=== PATIENT | male | born 1995 | race Two or more races ===

== ENCOUNTER 2017-07-09 18:51 | Emergency (ER) | payer BC ==
[2017-07-09 18:57] VITALS: BP 118/70; BMI 24.8
--- NOTE | 2017-07-09 20:52 | RAD ---
Left knee series, two views Indication: Fall. Comparison: None available. Impression: No acute fracture or malalignment is identified within the left knee. Joint spaces are preserved. The surrounding soft tissues appear normal without appreciable joint effusion. Reported By:
[2017-07-09] MEDS ORDERED: NAPROSYN PO ONE ×2 (21:30→21:43)
--- NOTE | 2017-07-09 21:34 | DR.GENAD ---
HPI - PCP Primary Care Physician: jhoana - HPI Comment HPI Comment: Knee pain - Complaint/Symptoms Chief Complaint Doctors Comments: He was playing and got tackled during a move. He felt his left knee pop one way and it popped back the other way when he got up. he noted associated pain with the injury. The joint swelled shortly thereafter. Chief Complaint:: pt states" i was playing soccer and i fell on my left knee and it popped out and i got back up and it popped back in, it hurts real bad" - Nurses notes reviewed Nurses Notes Review: Yes - Source History Provided: Patient - Mode of Arrival Mode of Arrival: Ambulatory - Timing Onset of Chief Complaint: 07/09/17 Came on: Suddenly - Duration Duration: Since Onset How lon Duration: Hours - Location Location: lt. knee - Severity Severity: Moderate - Modifying Factors Worsens:: walking/weight bearing Improves:: nothing - Associated Signs and Symptoms Associated Signs and Symptoms: weight bearing PMH - PMH Past Medical History: No Past Surgical History: No - Family History History of Family Medical Conditions: Yes Family Medical History: Diabetes Mellitus - Social History Alcohol Use: None Do you use any recreational Drugs:: No Lives With: Family Lives Where: Home - infectious screening In the last 2 months have you had wt loss of >10#?: NO Have you had fever, night sweats or hemotysis?: No Have you traveled outside the country in the last 6 months?: No Isolation: Standard ROS - Review of Systems Constitutional: No Symptoms Reported Eyes: No Symptoms Reported ENTM: No Symptoms Reported Respiratoy: No Symptoms Reported Cardiovascular: No Symptoms Reported Gastrointestinal/Abdominal: No Symptoms Reported Genitourinary: No Symptoms Reported Neurological: No Symptoms Reported Musculoskeletal: No Symptoms Reported, Joint Pain (lt. knee), Joint Swelling ( lt. knee) Integumentary: No Symptoms Reported Hematologic/Lymphatic: No Symptoms Reported Endocrine: No Symptoms Reported Psychiatric: No Symptoms Reported All Other Systems: Reviewed and Negative PE - Vital Signs Vitals: Temperature 98.6 F Pulse Rate 86 Respiratory Rate 18 Blood Pressure 118/70 O2 Sat by Pulse Oximetry 100 - General Limitations: No Limitations General Appearance: Alert, In No Apparent Distress - Head Head Exam: Normal Inspection - Eyes Eye exam: Normal Appearance - ENT ENT Exam: Normal Exam External Ear Exam: Normal External Inspection TM/Canal Exam: Bilateral Normal Nose Exam: Normal Nose Exam Mouth Exam: Normal Inspection Throat Exam: Normal Inspection - Neck Neck Exam: Normal Inspection - Chest Chest Inspection: Normal Inspection - Respiratory Respiratory Exam: Normal Lung Sounds Bilat Respiratory Exam: Bilateral Clear to Auscultation - Cardiovascular Cardiovascular Exam: Regular Rate, Normal Rhythm - Abdominal Exam Abdominal Exam: Normal Inspection, Normal Bowel Sounds, Soft - Extremities Extremities Exam: Normal Inspection, Tenderness (medial and lateral aspects of the left knee), Joint Swelling (mild to left knee) - Back Back Exam: Normal Inspection - Neurologic Neurological Exam: Alert, Oriented X3 - Psychiatric Psychiatric Exam: Normal Affect, Normal Mood - Skin Skin Exam: Warm, Dry, Intact, Normal Color Course - Reevaluation 1st: Improved - Education/Counseling Education/Counseling: Patient, Education, Counseling Educated On: Treatment, Diagnosis, Needs for Follow Up ROR - XRAY XRAY Interpreted by: Radiologist (There is no fracture or malalignment of the Leftknee. Joint spaces are preserved. soft tissues appear normal) - Diagnosis Discharge Problem: Strain of left knee - Discharge Plan Disposition: 01 HOME, SELF-CARE Condition: Stable - Follow ups/Referrals Follow ups/Referrals: NFD,None [Primary Care Provider] - 3 days - Instructions Additional Instructions: Avoid sporting acting until cleared at follow-up your clinician
== END 2017-07-09 22:29 | disposition home or self-care (01) ==
LOC: ER 19:03
DX: S83.92XA Sprain of unspecified site of left knee, initial encounter (principal); Y93.66 Activity, soccer; W19.XXXA Unspecified fall, initial encounter; Y92.322 Soccer field as the place of occurrence of the external cause
CPT/HCPCS: 29530; 73560; 99282

== ENCOUNTER 2018-01-13 22:52 | Emergency (ER) | payer SELFPAY ==
[2018-01-13 23:07] VITALS: BMI 25.7
[2018-01-13] MEDS ORDERED: NS 1000 ML 1,000 ML IV ONE (23:23)
[2018-01-13] MEDS ORDERED: LEVSIN/MAALOX/LIDOC VISC PO ONE (23:24)
[2018-01-13] MEDS ORDERED: ZOFRAN INJ 4 MG VIAL IVP ONE (23:24)
[2018-01-13] MEDS ORDERED: ZOFRAN INJ 4 MG VIAL ONE (23:27)
[2018-01-13] MEDS ORDERED: LEVSIN/MAALOX/LIDOC VISC ONE (23:27)
[2018-01-13] MEDS ORDERED: NS 1000 ML 1,000 ML ONE (23:28)
--- NOTE | 2018-01-13 23:30 | DR.GENAD ---
HPI - PCP Primary Care Physician: NFD - Complaint/Symptoms Chief Complaint Doctors Comments: Patient is complaining of severe abdominal pain, nausea, vomiting and cramping with diarrhea for the past 24 hours getting worst with chills but denies fever, cold, cough, chest pain or SOB. States onset of pain after eating chicken at [employer] today. States he has been having watery diarrhea three in the last hour but denies sam or hematuria. States he is a patient of Dr. Ward and is not taking any medicines. States he has been dizzy but denies headache or syncope. State his pain is 10 of 10. Chief Complaint:: PT C/O ABD PAIN WITH N/V/D THAT STARTED 1 HOUR AGO. PT STATES HE HAS NOT BEEN ABLE TO KEEP ANYTHING DOWN - Nurses notes reviewed Nurses Notes Review: Yes - Source History Provided: Patient - Mode of Arrival Mode of Arrival: Ambulatory - Timing Onset of Chief Complaint: 01/13/18 Came on: Gradually - Duration Duration: Constant How lon Duration: Days - Location Location: epigastric pain - Severity Severity: Moderate, Severe - Modifying Factors Worsens:: nothing Improves:: nothing PMH - PMH Past Medical History: No Past Surgical History: No - Family History History of Family Medical Conditions: No Family Medical History: Diabetes Mellitus - Social History Does any household member use tobacco: No Alcohol Use: None Do you use any recreational Drugs:: No Lives With: Family Lives Where: Home - infectious screening In the last 2 months have you had wt loss of >10#?: NO Have you had fever, night sweats or hemotysis?: No Have you traveled outside the country in the last 6 months?: No Isolation: Standard ROS - Review of Systems Constitutional: No Symptoms Reported, Chills, Weakness, Loss of Appetite. negative: See HPI, Diaphoresis, Fever, Malaise, Irritable, Fatigue, Other Eyes: No Symptoms Reported ENTM: No Symptoms Reported. negative: See HPI, Ear Pain, Ear Discharge, Pulling on Ears, Hearing Loss, Nose Pain, Nose Discharge, Epistaxis, Nose Congestion, Mouth Pain, Mouth Swelling, Loose Teeth, Drooling, Throat Pain, Throat Swelling, Ear Foreign Body Respiratoy: No Symptoms Reported. negative: See HPI, Productive Cough, Non- Productive Cough, Moist Cough, Dry Cough, Hacking Cough, Barking Cough, Brassy Cough, Orthopnea, Short of Breath, Stridor, Wheezing, Hemoptysis, Other Cardiovascular: No Symptoms Reported. negative: See HPI, Chest Pain, Edema, Palpitations, Syncope, Cyanosis, Skin Mottling, Other Gastrointestinal/Abdominal: No Symptoms Reported, Abdominal Pain, Diarrhea, Nausea, Vomiting. negative: See HPI, Constipation, Food Intolerance, Other Genitourinary: No Symptoms Reported. negative: See HPI, Discharge, Dysuria, Frequency, Hematuria, Pain, Bleeding, Other Neurological: No Symptoms Reported. negative: See HPI, Anxiety, Depressed, Emotional Problems, Headache, Numbness, Paresthesia, Pre-existing Deficit, Seizure, Tingling, Tremors, Weakness, Dizziness, Problems Walking, Speech Problem, Other Musculoskeletal: No Symptoms Reported Integumentary: No Symptoms Reported, Lesions (small lesion under nose with crusting). negative: See HPI, Change in Color, Change in Hair/Nails, Dryness, Lumps, Rash, Itching, Wound, Bruises, Juandice, Other Hematologic/Lymphatic: No Symptoms Reported. negative: See HPI, Anemia, Blood Clots, Easy Bleeding, Easy Bruising, Swollen Glands, Lymphadenopathy, Other Endocrine: No Symptoms Reported Psychiatric: No Symptoms Reported PE - Vital Signs Vitals: Temperature 97.6 F Pulse Rate 60 Respiratory Rate 20 Blood Pressure 98/58 O2 Sat by Pulse Oximetry 100 - General Limitations: No Limitations General Appearance: Alert, In Distress (moderate) - Head Head Exam: Normal Inspection, Atraumatic, Normocephalic - Eyes Eye exam: Normal Appearance, PERRL, EOMI. negative: Scleral Icterus, Conjunctival Injection, Nystagmus, Miosis, Mydrasis, Periorbital Swelling, Periorbital Tenderness, Other - ENT ENT Exam: Normal Exam, Normal Oropharynx, Normal External Ear Exam, Mucous Membranes Moist, TM's Normal Bilaterally External Ear Exam: Normal External Inspection TM/Canal Exam: Bilateral Normal Nose Exam: Normal Nose Exam Mouth Exam: Normal Inspection. negative: Drooling, Trismus, Lip Swelling, Tongue Elevation, Tongue Swelling, Laceration, Other Throat Exam: Normal Inspection. negative: Tonsillar Erythema, Tonsillomegaly, Tonsillar Exudate, R Peritonsillar Mass, L Peritonsillar Mass, Muffled Voice, Other - Neck Neck Exam: Normal Inspection, Full ROM, Trachea Midline. negative: Tenderness, Meningismus, Lymphadenopathy, Thyromegaly, Other - Chest Chest Inspection: Normal Inspection, Symmetric Chest Wall Rise. negative: Tenderness, Rash, Abscess, Other - Respiratory Respiratory Exam: Normal Lung Sounds Bilat. negative: Accessory Muscle Use, Chest Wall Tenderness, Prolonged Expiratory Phase, Respiratory Distress, Stridor , Other Respiratory Exam: Bilateral Clear to Auscultation - Cardiovascular Cardiovascular Exam: Regular Rate, Normal Rhythm, Normal Heart Sounds. negative : Bradycardia, Tachycardia, Irregular Rhythm, Systolic Murmur, Diastolic Murmur , Rubs, Gallop, Clicks, JVD, +S1, +S2, +S3, +S4, Other - Abdominal Exam Abdominal Exam: Normal Inspection, Normal Bowel Sounds, Soft, Tenderness ( epigastric tenderness with guarding), Guarding Abdominal Tenderness: LLQ, Epigastrium, Moderate - Extremities Extremities Exam: Normal Inspection, Full ROM, Normal Capillary Refill. negative: Tenderness, Edema, Joint Swelling, Calf Tenderness, Other - Back Back Exam: Normal Inspection, Full ROM. negative: Tenderness, (R) CVA Tenderness, (L) CVA Tenderness, Muscle Spasm, Paraspinal Tenderness, Vertebral Tenderness, Rashes, (R) Sciatic Notch Tenderness, (L) Sciatic Notch Tendern, (R ) Straight Leg Raise, (L) Straight Leg Raise, Other - Neurologic Neurological Exam: Alert, Oriented X3, CN II-XII Intact, Normal Gait, Reflexes Normal - Psychiatric Psychiatric Exam: Normal Affect, Normal Mood. negative: Depressed, Agitated, Anxious, Flat Affect, Manic, Homicidal Ideation, Suicidal Ideation, Other - Skin Skin Exam: Warm, Dry, Intact, Normal Color, Rash (small lesion under nose with crusting) ROR - Labs Reviewed Laboratory Results Reviewed?: Yes (All labs and x-ray results reviewed and discussed with patient) Result Diagrams: 01/13/18 23:40 01/13/18 23:40 Laboratory: WBC 15.8 X10^3/uL (3.6-10.0) H 01/13/18 23:40 RBC 4.70 X10^6/uL (4.7-6.0) 01/13/18 23:40 Hgb 13.9 g/dL (13.5-18.0) 01/13/18 23:40 Hct 40.8 % (42.0-54.0) L 01/13/18 23:40 MCV 86.9 fL (80.0-100.0) 01/13/18 23:40 MCH 29.7 pg (27.0-34.0) 01/13/18 23: MCHC 34.2 g/dL (33.0-35.0) 01/13/18 23:40 RDW 13.3 % (11.6-16.5) 01/13/18:40 Plt Count 293 X10^3/uL (150.0-450.0) 01/13/18 23:40 MPV 8.8 fL (7.4-11.0) 01/13/18 23: Neut % 86.6 % (42.0-75.0) H 01/13/18:40 Lymph % 6.2 % (21.0-51.0) L 01/13/18 23:40 [place] % 6.4 % (0.0-13.0) 01/13/18:40 Eos % 0.6 % (0.9-2.9) L 01/13/18 23:40 Baso % 0.2 % (0.2-1.0) 01/13/18 23:40 Neut # 13.7 x10^3/uL (2.2-4.8) H 01/13/18 23:40 Lymph # 1.0 X10^3/uL (1.3-2.9) L 01/13/18 23:40 [place] # 1.0 x10^3/uL (0.3-0.8) H 01/13/18 23:40 Eos # 0.1 x10^3/uL (0.0-0.2) 01/13/18 23:40 Baso # 0.0 X10^3/uL (0.0-0.1) 01/13/18 23:40 Absolute Nucleated RBC 0.0 /100WBC 01/13/18 23:40 Sodium 140 mmol/L (136-145) 01/13/18 23:40 Corrected Sodium 141 mmol/L (136-145) 01/13/18 23:40 Potassium 3.9 mmol/L (3.5-5.1) 01/13/18 23:40 Chloride 102 mmol/L (98-107) 01/13/18 23:40 Carbon Dioxide 27.6 mmol/L (21-32) 01/13/18 23:40 BUN 14 mg/dL (7-18) 01/13/18 23:40 Creatinine 0.98 mg/dL (0.70-1.30) 01/13/18 23:40 Est GFR (MDRD) Af Amer > 60 (>60) 01/13/18 23:40 Est GFR (MDRD) Non-Af > 60 (>60) 01/13/18 23:40 Glucose 145 mg/dL (65-99) H 01/13/18 23:40 Calcium 9.0 mg/dL (8.5-10.1) 01/13/18 23:40 Corrected Calcium TNP 01/13/18 23:40 Total Bilirubin 0.40 mg/dL (0.2-1.0) 01/13/18 23:40 AST 16 Units/L (15-37) 01/13/18 23:40 ALT 23 Units/L (12-78) 01/13/18 23:40 Alkaline Phosphatase 96 Units/L (46-116) 01/13/18 23:40 Total Protein 8.5 g/dL (6.4-8.2) H 01/13/18 23:40 Albumin 4.6 g/dL (3.4-5.0) 01/13/18 23:40 Globulin 3.9 g/dL (2.5-4.5) 01/13/18 23:40 Albumin/Globulin Ratio 1.2 Ratio (1.1-2.1) 01/13/18 23:40 Amylase 44 Units/L (25-115) 01/13/18 23:40 Lipase 67 Units/L (73-393) L 01/13/18 23:40 H. pylori IgG Antibody Negative (NEGATIVE) 01/13/18 23:40 - XRAY XRAY Interpreted by: Radiologist (CT of abdomen: No acute process within the abdomen or pelvis) - Diagnosis Discharge Problem: Gastroenteritis, acute, Dyspepsia, Hyperglycemia - Discharge Plan Disposition: HOME, SELF-CARE Condition: Stable Prescriptions: Diphenoxylate/Atropine [Lomotil] 1 tab PO BID PRN #12 tab PRN Reason: Ondansetron [Zofran Odt] 4 mg PO Q8H PRN #12 tab PRN Reason: Nausea/Vomiting Ranitidine HCl [ZANTAC TAB 150 MG *] 150 mg PO BID #60 tab - Follow ups/Referrals Follow ups/Referrals: TOBY,Lisbet [Primary Care Provider] - 3 days LIANET THOMAS [STAFF PHYSICIAN] - 3 days - Instructions Instructions: Viral Gastroenteritis, Adult, [id number], Duodenitis
--- NOTE | 2018-01-13 23:51 | CT ---
CT abdomen and pelvis without contrast Indication: Epigastric pain, vomiting Comparison: None Technique: CT images of the abdomen and pelvis were obtained without contrast. Automatic exposure con trol was utilized. Findings: No aggressive osseous lesions. The lung bases are clear. Evaluation of the abdominal pelvic viscera is limited without contrast. Accounting for this, the live r, gallbladder, spleen, stomach, duodenum, pancreas, adrenals, and kidneys are unremarkable. No marke d bowel thickening or dilatation of the lower GI tract is observed. The appendix is normal. The urina ry bladder, prostate, and rectum are unremarkable. No free fluid or adenopathy. Impression: No acute process within the abdomen or pelvis. Reported By:
[2018-01-14] LABS: BASOPHILS % (AUTO) 0.2 % (0.2-1.0); EOSINOPHILS # (AUTO) 0.1 x10^3/uL (0.0-0.2); EOSINOPHILS % (AUTO) 0.6 % (0.9-2.9); HEMATOCRIT 40.8 % (42.0-54.0); HEMOGLOBIN 13.9 g/dL (13.5-18.0); LYMPHOCYTES % (AUTO) 6.2 % (21.0-51.0); MEAN CORPUSCULAR HEMOGLOBIN 29.7 pg (27.0-34.0); MEAN CORPUSCULAR HGB CONC 34.2 g/dL (33.0-35.0); MEAN CORPUSCULAR VOLUME 86.9 fL (80.0-100.0); MEAN PLATELET VOLUME 8.8 fL (7.4-11.0); MONOCYTES % (AUTO) 6.4 % (0.0-13.0); NEUTROPHILS # (AUTO) 13.7 x10^3/uL (2.2-4.8); NEUTROPHILS % (AUTO) 86.6 % (42.0-75.0); PLATELET COUNT 293 X10^3/uL (150.0-450.0); RED CELL DISTRIBUTION WIDTH 13.3 % (11.6-16.5); WHITE BLOOD COUNT 15.8 X10^3/uL (3.6-10.0)
[2018-01-14 00:09] LABS: ALANINE AMINOTRANSFERASE 23 Units/L (12-78); ALBUMIN 4.6 g/dL (3.4-5.0); ALKALINE PHOSPHATASE 96 Units/L (46-116); AMYLASE 44 Units/L (25-115); ASPARTATE AMINO TRANSFERASE 16 Units/L (15-37); BLOOD UREA NITROGEN 14 mg/dL (7-18); CARBON DIOXIDE 27.6 mmol/L (21-32); CHLORIDE 102 mmol/L (98-107); COR NA(FOR HYPERGLY) 141 mmol/L (136-145); CREATININE 0.98 mg/dL (0.70-1.30); LIPASE 67 Units/L (73-393); SODIUM 140 mmol/L (136-145); TOTAL PROTEIN 8.5 g/dL (6.4-8.2); eGFR BLACK RACES > 60 (>60); eGFR NON BLACK RACES > 60 (>60)
[2018-01-14 00:32] VITALS: BP 123/60
== END 2018-01-14 00:32 | disposition home or self-care (01) ==
LOC: ER 22:52
DX: K52.89 Other specified noninfective gastroenteritis and colitis (principal); R10.13 Epigastric pain; R73.9 Hyperglycemia, unspecified
CPT/HCPCS: 36415; 74176; 80053; 82150; 83690; 85025; 86677; 96365; 96374; 99282; 99283; A4216; A4222; J2405